=== PATIENT | male | born 2000 | race Caucasian/White ===

== ENCOUNTER 2018-12-10 18:08 | Emergency (ER) | payer SELFPAY ==
[~2018-12-10] VITALS: Ht 170.2 cm; Wt 99.8 kg
[2018-12-10 18:15] VITALS: BP 141/95
--- NOTE | 2018-12-10 18:18 | NUR ---
PT AMBULATED TO ER BED 09
--- NOTE | 2018-12-10 18:25 | NUR ---
PATIENT PRESENTS TO ED WITH STAPLE REMOVAL. HAS TWO GARRETT, SITE REDNESS. SUTURE SITE DRY. DENIES PAIN THE THE SITE. DENIES N/V/D; SKIN IS PINK/WARM/DRY; AAOX4 WITH EVEN AND STEADY GAIT. PT DENIES ANY FEVER, CP, SOB, OR COUGH AT THIS TIME; PATIENT STATES PAIN OF 0/10 AT THIS TIME; VSS; PATIENT POSITIONED FOR COMFORT; HOB ELEVATED; BEDRAILS UP X2; BED DOWN. ER MD MADE AWARE OF PT STATUS.
--- NOTE | 2018-12-10 18:34 | NUR ---
BEING SEEN BY DR. MARTIN.
--- NOTE | 2018-12-10 18:48 | NUR ---
Patient discharged with v/s stable. S/P staple removal. Site intact. Written and verbal after care instructions given and explained. Patient verbalized understanding. Ambulatory with steady gait. All questions addressed prior to discharge. Advised to follow up with PMD.
[2018-12-10 18:49] VITALS: BP 141/84
== END 2018-12-10 18:48 | disposition home or self-care (01) ==
LOC: MED 18:08
DX: S01.01XD Laceration without foreign body of scalp, subsequent encounter (principal); X58.XXXD Exposure to other specified factors, subsequent encounter
CPT/HCPCS: 99281